=== PATIENT | male | born 1995 | race Caucasian/White ===

== ENCOUNTER 2017-04-01 16:55 | Emergency (ER) | payer OTHER ==
[~2017-04-01] VITALS: Ht 185.4 cm; Wt 77.2 kg
[2017-04-01 17:01] VITALS: TEMP 36.8; Ht 185.4 cm; Wt 77.2 kg
[2017-04-01] MEDS ORDERED: PIPERACILLIN/TAZOBACTAM 4.5 GM/100ML D5W IV STA (18:33)
[2017-04-01] MEDS ORDERED: KETOROLAC TROMETHAMINE 30 MG/ML VIAL IV STA (18:33)
[2017-04-01] MEDS ORDERED: PENI-82 PO (18:34)
[2017-04-01] MEDS ORDERED: BENZOCAINE/TETRACAIN/BUTAM CAN 200 APPLN/20 GM CAN EXT STA (18:35)
[2017-04-01] MEDS ORDERED: LIDOCAINE/EPINEPHRINE 1% 20 ML VIAL INFIL STA (18:35)
--- NOTE | 2017-04-01 18:38 | EMERGENCY ROOM VISIT NOTE ---
History Report prepared by Sherine: Esa Redding Under the Supervision of: Dr. Elie Gomez M.D. First contact with patient: 18:25 Chief Complaint: THROAT PAIN/INJURY Stated Complaint: SORE THROAT History of Present Illness The patient is a 22 year old male who presents to the Emergency Room with complaints of throat pain that began 9 days ago. He rates his pain a 6/10 in severity. At this time, the patient was diagnosed with strep throat and given Penicillin. The antibiotics were not strong enough, and he began to experience an abscess on his left tonsil. He presents today to have it treated and drained. He is having difficulty swallowing secondary to the pain. He denies any fevers or other symptoms. Source of History: patient Onset: 9 days ago Position: throat Symptom Intensity: 6/10 Quality: other (Throat abscess) Timing: constant Associated Symptoms: No fevers Note: He is having difficulty swallowing. He denies any other symptoms. Review of Systems See HPI for pertinent positives & negatives. A total of 10 systems reviewed and were otherwise negative. Past Medical & Surgical Medical Problems: (1) No Known Active Medical Problems Family History Patient reports no known family medical history. Social History Smoking Status: Never Smoker Smokeless Tobacco Use: No Drug Use: none Marital Status: single Housing Status: lives with roommate Occupation Status: student Current/Historical Medications Scheduled Penicillin V Potassium (Veetids), 500 MG PO TID Allergies Coded Allergies: Shellfish (Unverified Allergy, Unknown, THROAT ITCHES, 04/01/17) Physical Exam Vital Signs Date Time Temp Pulse Resp B/P (MAP) Pulse Ox O2 Delivery O2 Flow Rate FiO2 04/01/17 20:18 64 18 130/74 98 04/01/17 19:30 62 18 121/65 96 Room Air 04/01/17 17:05 99 Room Air 04/01/17 17:01 36.8 85 20 110/53 99 Room Air Physical Exam GENERAL: Patient is a healthy-appearing well-nourished male HEAD: Normocephalic atraumatic EYES: Ocular movements intact pupils equal and react to light OROPHARYNX mucous membranes are moist. Large peritonsillar abscess on the left. Uvula is deviated to the right. NECK: Supple no nuchal rigidity CHEST: Good equal expansion LUNGS: Clear and equal to auscultation CARDIAC: Normal S1 and S2 ABDOMEN: Soft nontender no guarding BACK: No CVA tenderness EXTREMITIES: No pain upon palpation normal muscle strength in all groups no clubbing cyanosis or edema NEURO: Patient is following commands and answering questions appropriately. Alert and oriented x3 Cranial Nerves 2-12 grossly intact Medical Decision & Procedures Laboratory Results 04/01/17 18:50 Red Blood Count 5.34, Mean Corpuscular Volume 84.8, Mean Corpuscular Hemoglobin 29.4, Mean Corpuscular Hemoglobin Concent 34.7, Mean Platelet Volume 9.2, Neutrophils (%) (Auto) 63.6, Lymphocytes (%) (Auto) 28.9, Monocytes (%) (Auto) 6.3, Eosinophils (%) (Auto) 0.6, Basophils (%) (Auto) 0.2, Neutrophils # (Auto) 5.28, Lymphocytes # (Auto) 2.40, Monocytes # (Auto) 0.52, Eosinophils # (Auto) 0.05, Basophils # (Auto) 0.02 04/01/17 18:50 Test 04/01/17 18:50 White Blood Count 8.30 K/uL (4.8-10.8) Red Blood Count 5.34 M/uL (4.7-6.1) Hemoglobin 15.7 g/dL (14.0-18.0) Hematocrit 45.3 % (42-52) Mean Corpuscular Volume 84.8 fL (80-100) Mean Corpuscular Hemoglobin 29.4 pg (25-34) Mean Corpuscular Hemoglobin Concent 34.7 g/dl (32-36) Platelet Count 240 K/uL (130-400) Mean Platelet Volume 9.2 fL (7.4-10.4) Neutrophils (%) (Auto) 63.6 % Lymphocytes (%) (Auto) 28.9 % Monocytes (%) (Auto) 6.3 % Eosinophils (%) (Auto) 0.6 % Basophils (%) (Auto) 0.2 % Neutrophils # (Auto) 5.28 K/uL (1.4-6.5) Lymphocytes # (Auto) 2.40 K/uL (1.2-3.4) Monocytes # (Auto) 0.52 K/uL (0.11-0.59) Eosinophils # (Auto) 0.05 K/uL (0-0.5) Basophils # (Auto) 0.02 K/uL (0-0.2) RDW Standard Deviation 38.4 fL (36.4-46.3) RDW Coefficient of Variation 12.4 % (11.5-14.5) Immature Granulocyte % (Auto) 0.4 % Immature Granulocyte # (Auto) 0.03 K/uL (0.00-0.02) Anion Gap 5.0 mmol/L (3-11) Est Creatinine Clear Calc Drug Dose 130.0 ml/min Estimated GFR () 126.5 Estimated GFR (Non- 109.2 BUN/Creatinine Ratio 10.7 (10-20) Calcium Level 9.9 mg/dl (8.5-10.1) Labs reviewed by ED physician. Medications Administered Medications (Trade) Dose Ordered Sig/Giuliana Route Start Time Stop Time Status Last Admin Dose Admin Ketorolac Tromethamine (Toradol Inj) 30 mg NOW STAT IV 04/01/17 18:33 04/01/17 18:34 DC 04/01/17 19:01 30 MG Piperacillin Sod/ Tazobactam Sod (Zosyn Iv) 4.5 gm NOW STAT IV 04/01/17 18:33 04/01/17 18:34 DC 04/01/17 19:01 4.5 GM Benzocaine/ Butamben/ Tetracaine HCl (Cetacaine Can) 1 appln NOW STAT EXT 04/01/17 18:35 04/01/17 18:37 DC 04/01/17 19:00 1 APPLN Dexamethasone Sodium Phosphate (Decadron Inj) 10 mg NOW STAT IV 04/01/17 19:25 04/01/17 19:27 DC 04/01/17 20:13 10 MG Amoxicillin/ Clavulanate Potassium (Augmentin Tab) 875 mg NOW STAT PO 04/01/17 19:25 04/01/17 19:27 DC 04/01/17 20:13 875 MG Amoxicillin/ Clavulanate Potassium (Augmentin Tab) 875 mg ONE ONCE PO 04/01/17 19:30 04/01/17 19:31 DC 04/01/17 20:13 875 MG ED Course 1825: Past medical records reviewed. The patient was evaluated in room A9. A complete history and physical examination was performed. 183: Ordered Zosyn Iv 4.5 gm IV, Toradol Inj 30 mg IV 1833: I discussed the patient's case with Dr. Garcia of ENT at this time. He will be coming into the ER to drain the patient's abscess. 1834: Ordered Cetacaine Can 1 appln EXT, Lidocaine/Epinephrine 20 ml INFIL 1906: Dr. Garcia is doing the abscess drainage procedure. Please see his note for more information. 1924: Ordered Augmentin Tab 875 mg PO, Decadron Inj 10 mg IV 1929: Ordered Augmentin Tab 875 mg PO 1944: Upon reexamination the patient is resting. I discussed results and treatment plan with the patient. He verbalizes agreement and understanding. The patient is ready for discharge. Medical Decision Differential diagnoses include peritonsillar abscess. This is a 22-year-old male presents emergency Department with a peritonsillar abscess. An IV was established, the patient has a white blood cell count 8. He was given Toradol and normal saline bolus in the emergency department and started on Zosyn. Discussed case with Dr. Garcia who agreed to see the patient and drain the abscess. The patient will follow-up in his office tomorrow morning. In the meantime I'll place the patient on Augmentin and prednisone taper. Patient was in agreement with the treatment plan. Medication Reconcilliation Current Medication List: was personally reviewed by me Blood Pressure Screening Patient's blood pressure: Normal blood pressure Blood pressure disposition: Did not require urgent referral Consults Time Called: 1829 Consulting Physician: Dr. Garcia - ENT Returned Call: [phone] I discussed the patient's case with Dr. Garcia of ENT at this time. He will be coming into the ER to drain the patient's abscess. Impression Primary Impression: Peritonsillar abscess Scribe Attestation The scribe's documentation has been prepared under my direction and personally reviewed by me in its entirety. I confirm that the note above accurately reflects all work, treatment, procedures, and medical decision making performed by me. Departure Information Dispostion Home / Self-Care Referrals Randy Garcia MD [facility] Forms HOME CARE DOCUMENTATION FORM, IMPORTANT VISIT INFORMATION, WORK / SCHOOL INSTRUCTIONS Patient Instructions ED Peritonsillar Abscess, My [facility], Peritonsillar Abscess Additional Instructions Follow up with Dr Garcia's office tomorrow
[2017-04-01] MEDS ORDERED: CANNULA ONE ×2 (18:47)
[2017-04-01 19:01] LABS: BASO % 0.2 %; BASO ABS # 0.02 K/uL (0-0.2); COMPLETE YES; EOS % 0.6 %; HEMATOCRIT 45.3 % (42-52); IG% 0.4 %; LYMPH % 28.9 %; MEAN CELL VOLUME 84.8 fL (80-100); MEAN CORPUSCULAR HEMOGLOBIN 29.4 pg (25-34); MEAN CORPUSCULAR HGB CONC 34.7 g/dl (32-36); MEAN PLATELET VOLUME 9.2 fL (7.4-10.4); MONO % 6.3 %; NEUT % 63.6 %; PLATELET COUNT 240 K/uL (130-400); RED BLOOD COUNT 5.34 M/uL (4.7-6.1)
[2017-04-01 19:23] LABS: BUN/CREATININE RATIO 10.7 (10-20); CALCIUM 9.9 mg/dl (8.5-10.1); CREATININE 0.99 mg/dl (0.60-1.40); POTASSIUM 4.6 mmol/L (3.5-5.1)
[2017-04-01] MEDS ORDERED: AMOXICILLIN/CLAVULANATE TAB 875 MG TAB PO STA (19:25)
[2017-04-01] MEDS ORDERED: DEXAMETHASONE SOD INJ 10 MG/ML VIAL IV STA (19:25)
[2017-04-01] MEDS ORDERED: AMOXICILLIN/CLAVULANATE TAB 875 MG TAB PO ONE (19:30)
[2017-04-01 20:18] VITALS: BP 130/74; PULSE 64; O2SAT 98
--- NOTE | 2017-04-01 22:29 | ENT CONSULTATION ---
DATE OF CONSULTATION: 04/01/2017 OTOLARYNGOLOGY HEAD AND NECK SURGERY EMERGENCY ROOM CONSULTATION HISTORY OF PRESENT ILLNESS: I have been asked by Dr. Elie Gomez in the [facility] Emergency Room to evaluate this patient with a left peritonsillar abscess. 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 He reports that he had a positive strep test at [facility]. He went there for followup today, since his symptoms were worsened. He does not have any referred left otalgia. He does have odynophagia, dysphagia and a muffled voice. He denies any shortness of breath. He denies any past history of Streptococcal tonsillitis or peritonsillar abscess. ALLERGIES: SHELLFISH. MEDICATIONS: Penicillin. PAST MEDICAL HISTORY: None. PAST SURGICAL HISTORY: Status post open reduction and internal fixation of right tibial fracture. FAMILY HISTORY: Noncontributory. No bleeding disorders or malignant hyperthermia. 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 He is single. He denies any tobacco or illicit drug use. He drinks alcohol socially. REVIEW OF SYSTEMS: The patient has a sore throat, which is worse on the left hand side, odynophagia, and dysphagia. He has a mild muffled voice. He has trismus. He denies any referred otalgia. He denies any shortness of breath. He denies any lightheadedness or chest pain. PHYSICAL EXAMINATION: GENERAL: This is a young adult white male in no acute distress with a mild muffled voice. HEENT: External auditory canals and tympanic membranes are clear bilaterally. Nasal examination reveals a relatively midline septum and no inferior turbinate hypertrophy. Oral cavity and oropharyngeal examination reveals moderate trismus. Has a 4+ left tonsil with peritonsillar swelling and soft palate edema. There is no uvular deviation. There is no exudate on his left tonsil. His right tonsil appears to be 2+ and normal. NECK: Reveals some mild tender upper jugular digastric lymphadenopathy on the left hand side. LABORATORY DATA: The patient has a normal white blood cell count of 8.3. He has a normal chemistry profile. DESCRIPTION OF PROCEDURE: After verbally obtaining informed consent, the patient's oral cavity and oropharynx were sprayed with topical Cetacaine anesthetic spray. After allowing adequate time for anesthesia, a total of 2 mL of 1% lidocaine with 1:100,000 epinephrine was used to inject the left peritonsillar space. After allowing adequate time for vasoconstriction and anesthesia, an 18 gauge needle on a 10 mL syringe was used to aspirate approximately 4 mL of purulent material from the left peritonsillar space in the usual fashion superomedially. A #15 scalpel was then used to make a 1 cm transverse incision at the area of the needle aspiration site and a curved tonsil clamp was used to spread the left peritonsillar space superiorly, inferiorly, medially, and slightly laterally. An approximately 1 mL of further purulent material was expressed after the incision and drainage and pressing on his neck. The patient noted improvement in his trismus and overall pain in his throat after the procedure. IMPRESSION AND RECOMMENDATIONS: A 22-year-old male with a left peritonsillar abscess status post incision and drainage. I have recommended that the left peritonsillar abscess fluid be sent for Gram stain, culture and sensitivity. I have recommended that the patient be placed on Augmentin 875 mg twice daily for 2 weeks. I have also recommended prednisone 30 mg twice daily for 3 days, followed by 20 mg twice daily for 3 days, followed by 10 mg twice daily for 3 days, followed by 10 mg daily for 3 days. I would like to see him back in my office tomorrow at 1:00 p.m., but the patient is to call sooner or return to the Emergency Room if he has any worsening symptomatology. He was advised to take the antibiotics and steroids on a full stomach and to eat yogurt while he is on the medications. If you have any questions regarding this consultation, please do not hesitate to contact me.
== END 2017-04-01 20:19 | disposition home or self-care (01) ==
LOC: C.EDB 16:58 → C.EDA 20:19
DX: J36 Peritonsillar abscess (principal)